=== PATIENT | female | born 1995 | race Caucasian/White ===

== ENCOUNTER 2017-09-12 14:05 | Observation (INO) | payer MEDICAID ==
[~2017-09-12] VITALS: Ht 154.9 cm; Wt 83.0 kg
[2017-09-12 14:36] VITALS: BP 104/72
== END 2017-09-12 17:35 | disposition home or self-care (01) ==
LOC: MLD 14:05
PROVIDERS: ADMIT Obstetrics & Gynecology; ATTEND Obstetrics & Gynecology
DX: O46.92 Antepartum hemorrhage, unspecified, second trimester (principal); Z3A.24 24 weeks gestation of pregnancy
CPT/HCPCS: 76805; G0378; Q0092

== ENCOUNTER 2024-06-05 13:27 | Emergency (ER) | payer MEDICAID ==
[~2024-06-05] VITALS: Ht 152.4 cm; Wt 71.2 kg
[2024-06-05 13:34] VITALS: BP 115/81; PULSE 88; RESP 18; TEMP 97.4; O2SAT 99
[2024-06-05] MEDS ORDERED: IBUP-2809 PO (13:52)
[2024-06-05] MEDS ORDERED: AMOX1TAB8 PO (13:52)
== END 2024-06-05 14:26 | disposition home or self-care (01) ==
LOC: MED 13:27
DX: T22.211A Burn of second degree of right forearm, initial encounter (principal); X10.2XXA Contact with fats and cooking oils, initial encounter; Y93.89 Activity, other specified; Y92.89 Other specified places as the place of occurrence of the external cause; Y99.8 Other external cause status
CPT/HCPCS: 81025; 90471; 90715; 99283